=== PATIENT | male | born 1955 | race Caucasian/White ===

== ENCOUNTER 2017-03-14 09:00 | Day surgery (SDC) | payer MEDICARE, OTHER ==
[~2017-03-14 09:00] MED LIST: Lactated Ringers 1,000 ML IV SCH
--- NOTE | 2017-03-14 09:52 | PCM.PREANE ---
Preanesthetic Assessment - Anesthesia/Transfusion/Family Hx Anesthesia History: Prior Anesthesia Reaction Other Type of Anesthesia Reaction Comment: pt states he at times wakes up belligerent Family History of Anesthesia Reaction: No Intubation History: Unknown - Review of Systems General: No Symptoms Pulmonary: No Symptoms Cardiovascular: No Symptoms Gastrointestinal: Other (h/o colon polyps '12) Neurological: No Symptoms Other: Reports: None - Physical Assessment O2 Sat by Pulse Oximetry: 94 Respiratory Rate: 16 Vital Signs: Last Vital Signs Temp 36.2 C 03/14/17 09:36 Pulse 54 L 03/14/17 09:36 Resp 16 03/14/17 09:36 BP 142/81 H 03/14/17 09:36 Pulse Ox 94 L 03/14/17 09:36 Height: 1.73 m Weight: 97.522 kg ASA Class: 3 Mental Status: Alert & Oriented x3 Airway Class: Mallampati = 2 Dentition: Reports: Normal Dentition, Broken Tooth/Teeth (2 chips on front upper teeth) Thyro-Mental Finger Breadths: 3 Mouth Opening Finger Breadths: 3 ROM/Head Extension: Full Lungs: Clear to Auscultation, Normal Respiratory Effort Cardiovascular: Irregular Rhythm, Bradycardia (HR in 50's) - Allergies Allergies/Adverse Reactions: Allergies Allergy/AdvReac Type Severity Reaction Status Date / Time hydrocortisone Allergy Cannot Verified 03/08/17 10:46 [From Cortizone-10] Remember - Blood Blood Available: No - Anesthesia Plan Pre-Op Medication Ordered: None - Acknowledgements Anesthesia Type Planned: MAC Pt an Appropriate Candidate for the Planned Anesthesia: Yes Alternatives and Risks of Anesthesia Discussed w Pt/Guardian: Yes Pt/Guardian Understands and Agrees with Anesthesia Plan: Yes PreAnesthesia Questionnaire HEENT History: Reports: None Other HEENT History: wears glasses Cardiovascular History: Reports: Afib, Angina, High Cholesterol, Hypertension, PVD (with iliac and superfitial femoral artery stenting x7), SOB on Exertion, Stents (x2 in LAD '07 or ') Other Cardiovascular History: Ischemic heart disease with hx bypass surgery CABG x4 in '04, EF 02/01 WNL Respiratory History: Reports: Other (See Below) Other Respiratory History: questionable sleep apnea, has not been tested Gastrointestinal History: Reports: Colon Polyp, GERD, Hiatal Hernia, PUD Genitourinary History: Reports: BPH Musculoskeletal History: Reports: Arthritis, Fracture Other Musculoskeletal History: hx of fx right wrist Neurological History: Reports: Concussion Psychiatric History: Reports: Depression Endocrine/Metabolic History: Reports: Obesity/BMI 30+ Hematologic History: Reports: Blood Transfusion(s) Other Hematologic History: states had blood transfusions with cardiac bypass surgery Immunologic History: Reports: None Oncologic (Cancer) History: Reports: None Dermatologic History: Reports: None - Infectious Disease History Infectious Disease History: Reports: None - Past Surgical History Cardiovascular Surgical History: Reports: Coronary Artery Bypass, Coronary Artery Stent, Vascular Surgery Other Cardiovascular Surgeries/Procedures: hx of CABG x4 in '04, left fem-pop bypass with stent, bilateral illiac stents- gets 40 min. on treadmill a day GI Surgical History: Reports: Colonoscopy Male Surgical History: Reports: Vasectomy - SUBSTANCE USE Smoking Status *Q: Former Smoker Tobacco Use Within Last Twelve Months: No Recreational Drug Use History: No - HOME MEDS Home Medications: Home Meds Alpha Lipoic Acid 200 mg PO DAILY 08/21/15 [History] Ascorbic Acid [Vitamin C] 1,000 mg PO DAILY 08/21/15 [History] Aspirin [[employer] Aspirin] 81 mg PO DAILY 08/21/15 [History] Fish Oil/DHA/EPA [Fish Oil 1,200 MG] 1,200 mg PO DAILY 08/21/15 [History] Magnesium Oxide 400 mg PO DAILY 08/21/15 [History] Multivitamin [Multivitamins] 1 tab PO DAILY 08/21/15 [History] Nitroglycerin [Nitrostat] 0.4 mg SL ASDIRECTED PRN 08/21/15 [History] Pantoprazole Sodium 40 mg PO DAILY 08/21/15 [History] Vitamin B Complex 1 tab PO DAILY 08/21/15 [History] atorvaSTATin [Lipitor] 20 mg PO DAILY 08/21/15 [History] Diltiazem [Cardizem CD] 240 mg PO DAILY 08/29/15 [History] Lysine 500 mg PO DAILY 08/29/15 [History] Benazepril [Lotensin] 20 mg PO BID 04/14/16 [History] Rivaroxaban [Xarelto] 20 mg PO DAILY 04/14/16 [History] Ubidecarenone [Co Q-10] 100 mg PO DAILY 04/14/16 [History] Amiodarone HCl 100 mg PO DAILY 03/08/17 [History] Sertraline HCl [Zoloft] 50 mg PO DAILY 03/08/17 [History] Spironolact/Hydrochlorothiazid [Aldactazide 25-25] 1 tab PO DAILY 03/08/17 [ History] amLODIPine [Norvasc] 10 mg PO DAILY 03/08/17 [History] - CURRENT (IN HOUSE) MEDS Current Meds: Current Medications Lactated Ringer's (Ringers, Lactated) 1,000 mls @ 125 mls/hr IV ASDIRECTED [facility] Last Admin: 03/14/17 09:27 Dose: 125 mls/hr
[2017-03-14] MEDS ORDERED: Propofol 200 MG/20 ML SDV ONE ×3 (10:28→13:05)
[2017-03-14] MEDS ORDERED: Lidocaine 2% 5 ML SDV ONE (10:28)
--- NOTE | 2017-03-14 13:22 | PCM.OPNOTE ---
<Quan Woo - Last Filed: 03/14/17 13:20> - General Post-Op/Procedure Note Date of Surgery/Procedure: 03/14/17 Operative Procedure(s): Screening Colonoscopy, Rectal Polypectomy Findings: Small Rectal Polyp Pre Op Diagnosis: Personal History of Colon Polyps Post-Op Diagnosis: Small Rectal Polyp Anesthesia Technique: MAC (ASA III) Primary Surgeon: Kapil Heard Stapler Hand: Quan Woo EBL in mLs: 0 Complications: None Condition: Good <Kapil Heard - Last Filed: 03/14/17 13:26> - General Post-Op/Procedure Note Free Text/Narrative:: Dictation [id number] CPT CODE [id number]
[2017-03-14 14:14] VITALS: BP 105/65
--- NOTE | 2017-03-14 18:34 | OR ---
SURGEON: Kapil Heard M.D. DATE OF PROCEDURE: 03/14/2017 OPERATION PERFORMED: Colonoscopy with cold rectal polypectomy. [facility] CASE MANAGER: Dr. Goss, PGY-2. ANESTHESIA: MAC. ASA CLASSIFICATION: III. PREOPERATIVE DIAGNOSIS: Personal history of colon polyps. POSTOPERATIVE DIAGNOSIS: Small rectal polyp. DESCRIPTION OF PROCEDURE: The patient was taken to the endoscopy room, positioned on the endoscopy table in the left lateral decubitus position. Time-out was called for appropriate identification of the patient and procedure. Monitored anesthesia care was provided. The colonoscope was inserted into the rectum and advanced with great difficulty to the cecum. We did have to reposition the patient on his back, but we were eventually able to manipulate the colonoscope into the cecum. The cecum was identified by internal landmarks and external pressure. The colonoscope was eventually able to be retroflexed into the cecum and then straightened and slowly withdrawn. The cecum, ascending colon, hepatic flexure, transverse colon, splenic flexure, descending colon, and sigmoid colon were very well visualized. No tumors, polyps, diverticula, or angiodysplastic changes were noted anywhere. Once the colonoscope was withdrawn to the rectum, we could see a small polyp and this was removed with multiple bites of the cold biopsy forceps. The colonoscope was retroflexed to visualize the ascending colon from below then straightened and slowly withdrawn. No significant internal hemorrhoids were identified. The patient tolerated the procedure well and was taken to recovery room in stable condition. ADITI / RUIZ /[id number]
== END 2017-03-14 14:00 | disposition home or self-care (01) ==
LOC: MW.SDS 09:00
PROVIDERS: ATTEND Surgery
DX: Z12.11 Encounter for screening for malignant neoplasm of colon (principal); D12.8 Benign neoplasm of rectum; I25.10 Atherosclerotic heart disease of native coronary artery without angina pectoris; N40.0 Benign prostatic hyperplasia without lower urinary tract symptoms; F32.9 Major depressive disorder, single episode, unspecified; E78.5 Hyperlipidemia, unspecified; K21.9 Gastro-esophageal reflux disease without esophagitis; E66.9 Obesity, unspecified; Z79.82 Long term (current) use of aspirin; Z86.010 Personal history of colon polyps; Z98.61 Coronary angioplasty status; Z88.8 Allergy status to other drugs, medicaments and biological substances; Z79.899 Other long term (current) drug therapy; Z98.52 Vasectomy status; Z87.891 Personal history of nicotine dependence; Z68.30 Body mass index [BMI] 30.0-30.9, adult
CPT/HCPCS: 45380; J7120; 00810; 88305; J2704

== ENCOUNTER 2018-09-03 10:38 | Emergency (ER) | payer SELFPAY ==
--- NOTE | 2018-09-03 11:19 | EDM.PDOC ---
ED HPI GENERAL MEDICAL PROBLEM - General Chief Complaint: Skin Complaint Stated Complaint: SHINGLES Time Seen by Provider: 09/03/18 10:38 - History of Present Illness INITIAL COMMENTS - FREE TEXT/NARRATIVE: HISTORY AND PHYSICAL: History of present illness: Patient's a 63-year-old white male presents with a concern of painful rash that' s limited to his right buttock and is concerned about shingles. He states is quite painful. Review of systems: As per history of present illness and below otherwise all systems reviewed and negative. Past medical history: As per history of present illness and as reviewed below otherwise noncontributory. Surgical history: As per history of present illness and as reviewed below otherwise noncontributory. Social history: No reported history of drug or alcohol abuse. Family history: As per history of present illness and as reviewed below otherwise noncontributory. Physical exam: HEENT: Atraumatic, normocephalic, pupils reactive, negative for conjunctival pallor or scleral icterus, mucous membranes moist, throat clear, neck supple, nontender, trachea midline. Lungs: Clear to auscultation, breath sounds equal bilaterally, chest nontender. Heart: S1S2, regular, negative for clicks, rubs, or JVD. Abdomen: Soft, nondistended, nontender. Negative for masses or hepatosplenomegaly. Negative for costovertebral tenderness. Pelvis: Stable nontender. Genitourinary: Deferred. Rectal: Deferred. Extremities: Atraumatic, negative for cords or calf pain. Neurovascular unremarkable. Neuro: Awake, alert, oriented. Cranial nerves II through XII unremarkable. Cerebellum unremarkable. Motor and sensory unremarkable throughout. Exam nonfocal. Skin: Patient has a excoriated dermatomal distribution type rash in his left buttock that does not cross midline. Diagnostics: None Therapeutics: None Impression: # 1 herpes zoster Definitive disposition and diagnosis as appropriate pending reevaluation and review of above. buttock Pain Score (Numeric/FACES): 7 - Related Data Allergies Allergy/AdvReac Type Severity Reaction Status Date / Time hydrocortisone Allergy Cannot Verified 09/03/18 10:59 [From Cortizone-10] Remember Home Meds: Home Meds Alpha Lipoic Acid 200 mg PO DAILY 08/21/15 [History] Ascorbic Acid [Vitamin C] 1,000 mg PO DAILY 08/21/15 [History] Aspirin [[place] Aspirin EC] 81 mg PO DAILY 08/21/15 [History] Fish Oil/DHA/EPA [Fish Oil 1,200 MG] 1,200 mg PO DAILY 08/21/15 [History] Magnesium Oxide 400 mg PO DAILY 08/21/15 [History] Multivitamin [Multivitamins] 1 tab PO DAILY 08/21/15 [History] Nitroglycerin [Nitrostat] 0.4 mg SL ASDIRECTED PRN 08/21/15 [History] Pantoprazole Sodium 40 mg PO DAILY 08/21/15 [History] Vitamin B Complex 1 tab PO DAILY 08/21/15 [History] atorvaSTATin [Lipitor] 20 mg PO DAILY 08/21/15 [History] Diltiazem [Cardizem CD] 240 mg PO DAILY 08/29/15 [History] Lysine 500 mg PO DAILY 08/29/15 [History] Benazepril [Lotensin] 20 mg PO BID 04/14/16 [History] Rivaroxaban [Xarelto] 20 mg PO DAILY 04/14/16 [History] Ubidecarenone [Co Q-10] 100 mg PO DAILY 04/14/16 [History] Amiodarone HCl 100 mg PO DAILY 03/08/17 [History] Sertraline HCl [Zoloft] 50 mg PO DAILY 03/08/17 [History] Spironolact/Hydrochlorothiazid [Aldactazide 25-25] 1 tab PO DAILY 03/08/17 [ History] amLODIPine [Norvasc] 10 mg PO DAILY 03/08/17 [History] Past Medical History HEENT History: Reports: None Other HEENT History: wears glasses Cardiovascular History: Reports: Afib, Angina, High Cholesterol, Hypertension, PVD, SOB on Exertion, Stents, Other (See Below) Other Cardiovascular History: Ischemic heart disease with hx bypass surgery CABG x4 in '04, EF 02/01 WNL, cardioversion july 2018 Respiratory History: Reports: Other (See Below) Other Respiratory History: questionable sleep apnea, has not been tested Gastrointestinal History: Reports: Colon Polyp, GERD, Hiatal Hernia, PUD Genitourinary History: Reports: BPH Musculoskeletal History: Reports: Arthritis, Fracture Other Musculoskeletal History: hx of fx right wrist Neurological History: Reports: Concussion Psychiatric History: Reports: Depression Endocrine/Metabolic History: Reports: Obesity/BMI 30+ Hematologic History: Reports: Blood Transfusion(s) Other Hematologic History: states had blood transfusions with cardiac bypass surgery Immunologic History: Reports: None Oncologic (Cancer) History: Reports: None Dermatologic History: Reports: None - Infectious Disease History Infectious Disease History: Reports: Chicken Pox - Past Surgical History HEENT Surgical History: Reports: None Cardiovascular Surgical History: Reports: Coronary Artery Bypass, Coronary Artery Stent, Vascular Surgery Other Cardiovascular Surgeries/Procedures: hx of CABG x4 in '04, left fem-pop bypass with stent, bilateral illiac stents- gets 40 min. on treadmill a day Respiratory Surgical History: Reports: None GI Surgical History: Reports: Colonoscopy Male Surgical History: Reports: Vasectomy Endocrine Surgical History: Reports: None Neurological Surgical History: Reports: None Musculoskeletal Surgical History: Reports: None Oncologic Surgical History: Reports: None Dermatological Surgical History: Reports: None Social & Family History - Family History Family Medical History: Noncontributory - Tobacco Use Smoking Status *Q: Former Smoker Used Tobacco, but Quit: Yes Month/Year Tobacco Last Used: 1990 - Caffeine Use Caffeine Use: Reports: Coffee - Recreational Drug Use Recreational Drug Use: No ED ROS GENERAL - Review of Systems Review Of Systems: ROS reveals no pertinent complaints other than HPI. ED EXAM, SKIN/RASH Exam: See Below (See dictation) Course - Vital Signs Last Recorded V/S: Last Vital Signs Temp 36.4 C 09/03/18 10:58 Pulse 64 09/03/18 10:58 Resp 16 09/03/18 10:58 BP 97/53 L 09/03/18 10:58 Pulse Ox 93 L 09/03/18 10:58 Departure - Departure Time of Disposition: 11:18 Disposition: Home, Self-Care 01 Condition: Good Clinical Impression: Shingles - Discharge Information Referrals: Sharad Paul MD [Primary Care Provider] - Additional Instructions: The following information is given to patients seen in the emergency department who are being discharged to home. This information is to outline your options for follow-up care. We provide all patients seen in our emergency department with a follow-up referral. The need for follow-up, as well as the timing and circumstances, are variable depending upon the specifics of your emergency department visit. If you don't have a primary care physician on staff, we will provide you with a referral. We always advise you to contact your personal physician following an emergency department visit to inform them of the circumstance of the visit and for follow-up with them and/or the need for any referrals to a consulting specialist. The emergency department will also refer you to a specialist when appropriate. This referral assures that you have the opportunity for followup care with a specialist. All of these measure are taken in an effort to provide you with optimal care, which includes your followup. Under all circumstances we always encourage you to contact your private physician who remains a resource for coordinating your care. When calling for followup care, please make the office aware that this follow-up is from your recent emergency room visit. If for any reason you are refused follow-up, please contact the [facility] emergency department at and asked to speak to the emergency department charge nurse. [place] Med[facility] Dosepak Valtrex as prescribed follow-up primary medical doctor as discussed return as needed as discussed
[2018-09-03 11:34] VITALS: BP 104/52
== END 2018-09-03 11:30 | disposition home or self-care (01) ==
LOC: MW.ED 10:38
DX: B02.9 Zoster without complications (principal); I10 Essential (primary) hypertension; I48.91 Unspecified atrial fibrillation; K21.9 Gastro-esophageal reflux disease without esophagitis; E66.9 Obesity, unspecified; Z95.5 Presence of coronary angioplasty implant and graft; Z95.1 Presence of aortocoronary bypass graft; Z79.899 Other long term (current) drug therapy; Z79.82 Long term (current) use of aspirin
CPT/HCPCS: 99282

== ENCOUNTER 2020-09-19 20:36 | Emergency (ER) | payer MEDICARE ==
[2020-09-19] MEDS ORDERED: Sodium Chloride 0.9% 2.5 ML Syringe FLUSH PRN (21:10)
[2020-09-19] MEDS ORDERED: Sodium Chloride 0.9% 10 ML Syringe FLUSH PRN (21:10)
[2020-09-19] MEDS ORDERED: Adenosine 6 MG/2 ML SDV IVPUSH ONE (21:14)
[2020-09-19] MEDS ORDERED: Adenosine 6 MG/2 ML SDV ONE (21:20)
[2020-09-19] MEDS ORDERED: Diltiazem 25 MG/5 ML SDV IVPUSH ONE (21:33)
--- NOTE | 2020-09-19 21:33 | EDM.PDOC ---
ED HPI GENERAL MEDICAL PROBLEM - General Chief Complaint: Cardiovascular Problem Stated Complaint: FAST HEART RATE Time Seen by Provider: 09/19/20 21:02 - History of Present Illness INITIAL COMMENTS - FREE TEXT/NARRATIVE: history of present illness: [] The patient was returning from an out-of-town trip. About 7 PM he began to feel very weak in his began to feel his heart beating really fast. He had a minimal anterior chest pain. There was no significant dyspnea. He did not vomit. He was diaphoretic. The patient has a history of a rapid heartbeat at first he could not tell me what the rhythm was but after his came he said it was atrial fibrillation and is on Xarelto and Plavix. Review of systems: As per history of present illness and below otherwise all systems reviewed and negative. Past medical history: As per history of present illness and as reviewed below otherwise noncontributory. Surgical history: As per history of present illness and as reviewed below otherwise noncontributory. Social history: No reported history of drug or alcohol abuse. Family history: As per history of present illness and as reviewed below otherwise noncontributory. Physical exam: Constitutional - well developed, well-nourished and in no acute distress HEENT - normocephalic, no evidence of trauma - external nose and mouth normal - no mass in neck and no JVD - mucosae moist EYES - full EOM, PERRL, no icterus - no evidence of inflammation, injection, or drainage Respiratory - no respiratory distress, equal bilateral expansion, lungs clear to auscultation and no abnormal lung sounds Cardiovascular - Regular Rhythm with S1 and S2 appreciated and no murmur, gallop or rub. Patient's heart rate is 194. GI - abdomen soft without distension or organomegaly - normal bowel sounds - no guard or rebound Musculoskeletal no gross deformity of long bones or joints - no tenderness, swelling or edema Neurologic - Alert and oriented times four - CN II-XII grossly intact - motor sensory and coordination symmetrically normal Psychiatric - appropriate mood and affect with normal thought content Hematologic - No petechiae or purpura - mucosa appropriate color and sclera not pale - normal nail bed color and refill Integument - no rash or evidence of trauma - normal turgor Diagnostics: [] Therapeutics: [] Impression: [] Plan: [] Definitive disposition and diagnosis as appropriate pending reevaluation and review of above. - Related Data Allergies Allergy/AdvReac Type Severity Reaction Status Date / Time hydrocortisone Allergy Cannot Verified 09/03/18 10:59 [From Cortizone-10] Remember Home Meds: Home Meds Alpha Lipoic Acid 200 mg PO DAILY 08/21/15 [History] Ascorbic Acid [Vitamin C] 1,000 mg PO DAILY 08/21/15 [History] Aspirin [[place] Aspirin EC] 81 mg PO DAILY 08/21/15 [History] Fish Oil/DHA/EPA [Fish Oil 1,200 MG] 1,200 mg PO DAILY 08/21/15 [History] Magnesium Oxide 400 mg PO DAILY 08/21/15 [History] Multivitamin [Multivitamins] 1 tab PO DAILY 08/21/15 [History] Nitroglycerin [Nitrostat] 0.4 mg SL ASDIRECTED PRN 08/21/15 [History] Pantoprazole Sodium 40 mg PO DAILY 08/21/15 [History] Vitamin B Complex 1 tab PO DAILY 08/21/15 [History] atorvaSTATin [Lipitor] 20 mg PO DAILY 08/21/15 [History] Diltiazem [Cardizem CD] 240 mg PO DAILY 08/29/15 [History] Lysine 500 mg PO DAILY 08/29/15 [History] Benazepril [Lotensin] 20 mg PO BID 04/14/16 [History] Rivaroxaban [Xarelto] 5 mg PO DAILY 04/14/16 [History] Ubidecarenone [Co Q-10] 100 mg PO DAILY 04/14/16 [History] Amiodarone HCl 100 mg PO DAILY 03/08/17 [History] Sertraline HCl [Zoloft] 50 mg PO DAILY 03/08/17 [History] Spironolact/Hydrochlorothiazid [Aldactazide 25-25] 1 tab PO DAILY 03/08/17 [History] amLODIPine [Norvasc] 10 mg PO DAILY 03/08/17 [History] Past Medical History HEENT History: Reports: None Other HEENT History: wears glasses Cardiovascular History: Reports: Afib, Angina, High Cholesterol, Hypertension, PVD, SOB on Exertion, Stents, Other (See Below) Other Cardiovascular History: Ischemic heart disease with hx bypass surgery CABG x4 in , EF 02/01 WNL, cardioversion july 2018 Respiratory History: Reports: Other (See Below) Other Respiratory History: questionable sleep apnea, has not been tested Gastrointestinal History: Reports: Colon Polyp, GERD, Hiatal Hernia, PUD Genitourinary History: Reports: BPH Musculoskeletal History: Reports: Arthritis, Fracture Other Musculoskeletal History: hx of fx right wrist Neurological History: Reports: Concussion Psychiatric History: Reports: Depression Endocrine/Metabolic History: Reports: Obesity/BMI 30+ Hematologic History: Reports: Blood Transfusion(s) Other Hematologic History: states had blood transfusions with cardiac bypass surgery Immunologic History: Reports: None Oncologic (Cancer) History: Reports: None Dermatologic History: Reports: None - Infectious Disease History Infectious Disease History: Reports: Chicken Pox - Past Surgical History HEENT Surgical History: Reports: None Cardiovascular Surgical History: Reports: Coronary Artery Bypass, Coronary Artery Stent, Vascular Surgery Other Cardiovascular Surgeries/Procedures: hx of CABG x4 in '04, left fem-pop bypass with stent, bilateral illiac stents- gets 40 min. on treadmill a day Respiratory Surgical History: Reports: None GI Surgical History: Reports: Colonoscopy Male Surgical History: Reports: Vasectomy Endocrine Surgical History: Reports: None Neurological Surgical History: Reports: None Musculoskeletal Surgical History: Reports: None Oncologic Surgical History: Reports: None Dermatological Surgical History: Reports: None Social & Family History - Family History Family Medical History: No Pertinent Family History - Caffeine Use Caffeine Use: Reports: None - Recreational Drug Use Recreational Drug Use: No ED ROS GENERAL - Review of Systems Review Of Systems: Comprehensive ROS is negative, except as noted in HPI. ED EXAM, GENERAL - Physical Exam Exam: See Below Free Text/Narrative:: Physical exam in the HPI Course - Vital Signs Text/Narrative:: Patient was given adenosine 6 mg and he went into wide-complex rhythm briefly with a controlled rate but that was less than 2 seconds. On the monitor he was given adenosine again and he broke again for about 2 seconds and went back into his rate. He definitely had a regular R to R interval but I tried Cardizem as my next drug while I notified anesthesia that he had eaten 2 hours before he arrived here but might need sedation for cardioversion. He remained stable but had some mild chest pain. He is rate is controlled with Cardizem and he is now obviously in atrial fibrillation so he must of been and is VT mimicking atrial flutter with a regular rate. The patient's troponin was reported positive. Magnesium was normal and electrolytes were essentially normal. Discussed with Dr. Samuel in the emergency department at [place] where his investigation lieutenant Dr. Carr works. The patient will be transferred on a Cardizem drip and flown directly to [place] where he can be cared for. Due to a high probability of clinically significant, life threatening deterioration, the patient required my highest level of preparedness to intervene emergently and I personally spent this critical care time directly and personally managing the patient. This critical care time included obtaining a history; examining the patient; pulse oximetry; ordering and review of studies; arranging urgent treatment with development of a management plan; evaluation of patient's response to treatment; frequent reassessment; and, discussions with other providers. This critical care time was performed to assess and manage the high probability of imminent, life-threatening deterioration that could result in multi-organ failure. It was exclusive of separately billable procedures and treating other patients and teaching time. 32 minutes This patient was seen and evaluated during the 2019 SARS-CoV-2 novel coronavirus pandemic period. Community viral transmission is ongoing at time of this encounter and the emergency department is operating under pandemic response procedures. Last Recorded V/S: Last Vital Signs Temp 36.2 C 09/19/20 21:00 Pulse 91 09/19/20 21:56 Resp 17 09/19/20 21:56 BP 119/77 09/19/20 21:56 Pulse Ox 96 09/19/20 21:56 - Orders/Labs/Meds Orders: Active Orders 24 hr Category Date Time Status EKG Documentation Completion [RC] AM Care 09/19/20 21:10 Active Diltiazem [Cardizem] 100 mg Med 09/19/20 22:00 Active Sodium Chloride 0.9% [Normal Saline] 100 ml IV NOW Sodium Chloride 0.9% [Saline Flush] Med 09/19/20 21:10 Active 10 ml FLUSH ASDIRECTED PRN Sodium Chloride 0.9% [Saline Flush] Med 09/19/20 21:10 Active 2.5 ml FLUSH ASDIRECTED PRN Saline Lock Insert [OM.PC] Stat Oth 09/19/20 21:10 Ordered Medication Orders Diltiazem HCl 100 mg/ Sodium (Chloride) 100 mls @ 5 mls/hr IV NOW [facility]; Protocol Sodium Chloride (Sodium Chloride 0.9% 10 Ml Syringe) 10 ml FLUSH ASDIRECTED PRN PRN Reason: Keep Vein Open Last Admin: 09/19/20 21:33 Dose: 10 ml Documented by: NIA Sodium Chloride (Sodium Chloride 0.9% 2.5 Ml Syringe) 2.5 ml FLUSH ASDIRECTED PRN PRN Reason: Keep Vein Open Last Admin: 09/19/20 21:33 Dose: 2.5 ml Documented by: NIA Labs: Laboratory Tests 09/19/20 09/19/20 Range/Units 21:00 21:00 WBC 8.35 (4.0-11.0) K/uL RBC 4.62 (4.50-5.90) M/uL Hgb 14.5 (13.0-17.0) g/dL Hct 43.0 (38.0-50.0) % MCV 93.1 (80.0-98.0) fL MCH 31.4 (27.0-32.0) pg MCHC 33.7 (31.0-37.0) g/dL RDW Std Deviation 46.9 (28.0-62.0) fl RDW Coeff of Micah 14 (11.0-15.0) % Plt Count 193 (150-400) K/uL MPV 11.40 (7.40-12.00) fL Neut % (Auto) 67.1 (48.0-80.0) % Lymph % (Auto) 23.6 (16.0-40.0) % [place] % (Auto) 8.1 (0.0-15.0) % Eos % (Auto) 1.0 (0.0-7.0) % Baso % (Auto) 0.2 (0.0-1.5) % Neut # (Auto) 5.6 (1.4-5.7) K/uL Lymph # (Auto) 2.0 (0.6-2.4) K/uL [place] # (Auto) 0.7 (0.0-0.8) K/uL Eos # (Auto) 0.1 (0.0-0.7) K/uL Baso # (Auto) 0.0 (0.0-0.1) K/uL Nucleated RBC % 0.0 /100WBC Nucleated RBCs # 0 K/uL Sodium 142 (136-148) mmol/L Potassium 4.4 (3.5-5.1) mmol/L Chloride 107 (98-107) mmol/L Carbon Dioxide 26.7 (21.0-32.0) mmol/L BUN 21 H (7.0-18.0) mg/dL Creatinine 1.3 (0.8-1.3) mg/dL Est Cr Clr Drug Dosing TNP Estimated GFR (MDRD) 55.1 ml/min Glucose 108 H (74-106) mg/dL Calcium 9.2 (8.5-10.1) mg/dL Magnesium 2.2 (1.8-2.4) mg/dL Total Bilirubin 0.3 (0.2-1.0) mg/dL AST 19 (15-37) IU/L ALT 26 (14-63) IU/L Alkaline Phosphatase 72 (46-116) U/L Troponin I 1.156 H* (0.000-0.056) ng/mL Total Protein 7.1 (6.4-8.2) g/dL Albumin 3.5 (3.4-5.0) g/dL Globulin 3.6 (2.6-4.0) g/dL Albumin/Globulin Ratio 1.0 (0.9-1.6) Meds: Medications Generic Name Dose Route Start Last Admin Trade Name Freq PRN Reason Stop Dose Admin Diltiazem HCl 100 mg/ Sodium 100 mls @ 5 mls/hr 09/19/20 22:00 Chloride IV NOW DIO Protocol 5 MG/HR Sodium Chloride 10 ml 09/19/20 21:10 09/19/20 21:33 Sodium Chloride 0.9% 10 Ml Syringe FLUSH 10 ml ASDIRECTED PRN Administration Keep Vein Open Sodium Chloride 2.5 ml 09/19/20 21:10 09/19/20 21:33 Sodium Chloride 0.9% 2.5 Ml Syringe FLUSH 2.5 ml ASDIRECTED PRN Administration Keep Vein Open Discontinued Medications Generic Name Dose Route Start Last Admin Trade Name Freq PRN Reason Stop Dose Admin Adenosine 6 mg 09/19/20 21:14 09/19/20 21:31 Adenosine 6 Mg/2 Ml Sdv IVPUSH 09/19/20 21:15 6 mg NOW ONE Administration Adenosine Confirm 09/19/20 21:20 09/19/20 21:32 Adenosine 6 Mg/2 Ml Sdv Administered 09/19/20 21:21 12 mg Dose Administration 12 mg .ROUTE .STK-MED ONE Diltiazem HCl 20 mg 09/19/20 21:33 09/19/20 21:48 Diltiazem 25 Mg/5 Ml Sdv IVPUSH 09/19/20 21:34 20 mg ONETIME ONE Administration Departure - Departure Time of Disposition: 22:07 Disposition: DC/Tfer to Acute Hospital 02 Reason for Transfer *Q: Other (Arrhythmia which has been controlled but perhaps temporarily along with non-STEMI) Condition: Good Clinical Impression: Non-STEMI (non-ST elevated myocardial infarction), Atrial fibrillation with rapid ventricular response Referrals: PCP,None [Primary Care Provider] - Forms: ED Department Discharge Sepsis Event Note (ED) - Evaluation Sepsis Screening Result: No Definite Risk - Focused Exam Vital Signs: Vital Signs Temp Pulse Resp BP Pulse Ox 09/19/20 21:56 91 17 119/77 96 09/19/20 21:49 92 20 129/81 96 09/19/20 21:35 182 H 19 109/81 96 09/19/20 21:30 183 H 19 134/95 H 97 09/19/20 21:12 185 H 20 160/105 H 96 09/19/20 21:00 36.2 C 185 H 16 160/105 H 96 - My Orders Last 24 Hours: My Active Orders 09/19/20 21:10 EKG Documentation Completion [RC] AM Sodium Chloride 0.9% [Saline Flush] 10 ml FLUSH ASDIRECTED PRN Sodium Chloride 0.9% [Saline Flush] 2.5 ml FLUSH ASDIRECTED PRN Saline Lock Insert [OM.PC] Stat 09/19/20 22:00 Diltiazem [Cardizem] 100 mg Sodium Chloride 0.9% [Normal Saline] 100 ml IV NOW - Assessment/Plan Last 24 Hours: My Active Orders 09/19/20 21:10 EKG Documentation Completion [RC] AM Sodium Chloride 0.9% [Saline Flush] 10 ml FLUSH ASDIRECTED PRN Sodium Chloride 0.9% [Saline Flush] 2.5 ml FLUSH ASDIRECTED PRN Saline Lock Insert [OM.PC] Stat 09/19/20 22:00 Diltiazem [Cardizem] 100 mg Sodium Chloride 0.9% [Normal Saline] 100 ml IV NOW
[2020-09-19 21:34] LABS: BLOOD UREA NITROGEN,BUN 21 mg/dL (7.0-18.0); CARBON DIOXIDE,CO2 26.7 mmol/L (21.0-32.0); CHLORIDE,CL 107 mmol/L (98-107); GLUCOSE RANDOM 108 mg/dL (74-106); POTASSIUM,K 4.4 mmol/L (3.5-5.1); SODIUM,NA 142 mmol/L (136-148)
[2020-09-19] MEDS ORDERED: Diltiazem 100 MG in Sodium Chloride 0.9% 100 ML IV SCH (22:00)
[2020-09-19 22:25] VITALS: BP 128/86; PULSE 98
== END 2020-09-19 22:40 ==
LOC: MW.ED 20:36
DX: I21.4 Non-ST elevation (NSTEMI) myocardial infarction (principal); I48.91 Unspecified atrial fibrillation; I10 Essential (primary) hypertension; E78.00 Pure hypercholesterolemia, unspecified; K21.9 Gastro-esophageal reflux disease without esophagitis; M19.90 Unspecified osteoarthritis, unspecified site; E66.9 Obesity, unspecified; Z68.31 Body mass index [BMI] 31.0-31.9, adult; Z95.1 Presence of aortocoronary bypass graft; Z88.8 Allergy status to other drugs, medicaments and biological substances; Z79.82 Long term (current) use of aspirin; Z79.01 Long term (current) use of anticoagulants; Z79.899 Other long term (current) drug therapy
CPT/HCPCS: 36415; 80053; 83735; 84484; 85025; 93005; 96365; 96375; 99285; J0153; J3490